=== PATIENT | male | born 2000 | race African-American/Black ===

== ENCOUNTER 2025-07-12 11:49 | Outpatient (AMB) | payer OTHER, SELFPAY ==
--- NOTE | 2025-07-12 12:02 | A.OFFVIS_ITS ---
Vital Signs 3 07/12/25 12:09 Height 5 ft 10 in Weight 190 lb BMI 27.3 Intake Visit Reasons: laceration/a fracture by the big toe DOI 05/30/25 Intake Note: job injurey xray and ct 05/30 done at [facility] x[facility] and was told there was no fractur in the foot nerve pain and function pins and needles HPI HPI laceration/a fracture by the big toe DOI 05/30/25: Details: The patient is a 25 year old male presenting for initial evaluation for a right foot injury. The patient sustained a traumatic injury and laceration to his right foot on May 30. 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 An initial evaluation suggested a sesamoid fracture, but a more recent X-ray on Thursday reportedly did not show a fracture. He states the wound was not sutured at the time of injury due to concerns about internal bleeding. He reports that the healing has been slow. The patient reports an inability to bend his big toe and has pain at the joint. He also describes experiencing nerve pain, specifically pins and needles and slight numbness in the knuckle and toe area. Medical History: - No significant health problems reported. - Denies history of diabetes mellitus. Social History: - Employment: The patient works as a concrete mixer truck driver and has been out of work due to his foot injury. Review of Systems Const All systems reviewed & are unremarkable except as noted in HPI and below Physical Exam Vital Signs: BMI result Body Mass Index 27.3 Extrem Other: *Bilateral Lower Extremity Focused Exam Vascular: DP/PT 2/4, CFT<3s to digits, TG wram to cool, moderate edema to right dorsal foot and plantar 1st MTP Derm: 4cm x 0.5cm x 0.2cm wound to dorsal lateral first metatarsal right foot with unstageable eschar. Neuro: Tinel's sign positive to right 1st interspace MSK: Moderate tenderness on palpation of plantar 1st MTP sesamoid right foot, (+) Pain on range of motion of right 1st MTP. Dorsiflexion 0/5 right hallux. Office Procedures AMB Debridement/Avulsion Podia Details: Procedure: Sharp excisional debridement Depth: Dermis layer Indication: Right foot wound status post laceration 05/30/2025 Anesthesia: 5% lidocaine jelly Description: The site was prepped using alcohol/cleanser. A #15 Blade and a curette weres used to perform a sharp excisional wound debridement of the lesion to the level of dermis. The lesion measured 4cm x 0.5cm x 0.3cm at the end of debridement. Dressings: triple antibiotic ointment, band-aid Tolerance: Patient tolerated procedure well, no immediate complications. [id number] of active wound <20cm Procedure code (CPT) selection complete Assessment & Plan Assessment & Plan (1) Closed fracture of sesamoid bone of right foot: Code(s): S92.811A - Other fracture of right foot, initial encounter for closed fracture Category: Medical Qualifiers: Encounter type: initial encounter Qualified Code(s): S92.811A - Other fracture of right foot, initial encounter for closed fracture Plan: * Differential diagnosis: Sesamoid fracture, 1st MTP turf toe, EHL/DPN laceration * Rx right foot x-rays * Rx MRI of the right foot to assess sesamoid fracture, tendon damage, and nerve injury, as the patient cannot flex his toe and reports paresthesia. * He was provided with a walking boot and instructed to wear it whenever he is walking to offload the foot. * The patient was provided a note for one month off work pending further diagnostic results. * The patient was counseled that a sesamoid fracture can take about two months to heal with immobilization, whereas a tendon/nerve injury would require surgical repair. * Follow up in 1 month (2) Laceration of extensor hallucis longus tendon: Code(s): S96.129A - Laceration of muscle and tendon of long extensor muscle of toe at ankle and foot level, unspecified foot, initial encounter Category: Medical Qualifiers: Encounter type: initial encounter Laterality: right Qualified Code(s): S96.121A - Laceration of muscle and tendon of long extensor muscle of toe at ankle and foot level, right foot, initial encounter Plan: * Rx MRI of the right foot to assess sesamoid fracture, tendon damage, and nerve injury, as the patient cannot flex his toe and reports paresthesia. (3) Wound of right foot: Code(s): S91.301A - Unspecified open wound, right foot, initial encounter Category: Medical Plan: * Debrided right foot wound. Dressed with antibiotic ointment and a band-aid. (4) Neuritis of right foot: Code(s): G57.91 - Unspecified mononeuropathy of right lower limb Category: Medical Plan: * Rx MRI of the right foot to assess sesamoid fracture, tendon damage, and nerve injury, as the patient cannot flex his toe and reports paresthesia. Orders: Orders 2 MR foot RT wo con Today S92.811A - Other fracture of right foot, initial encounter for closed fracture, S96.129A - Laceration of muscle and tendon of long extensor muscle of toe at ankle and foot level, unspecified foot, initial encounter XR foot RT min 3V Today S92.811A - Other fracture of right foot, initial encounter for closed fracture Coding Level of Care Code New Pt Level 4 (00392) Diagnoses Closed fracture of sesamoid bone of right foot, initial encounter S92.811A Encounter type: initial encounter Laceration of right extensor hallucis longus tendon, initial encounter S96.121A Encounter type: initial encounter Laterality: right Wound of right foot S91.301A Neuritis of right foot G57.91 CPT Codes Skin Debridement - CPT: 69953-Tiqciqmashb of active wound <20cm ([id number]) Time Spent (min) 35
[2025-07-12 12:09] VITALS: BMI 27.3
== END 2025-07-12 12:46 | disposition home or self-care (01) ==
LOC: HO.HPODS 11:49
PROVIDERS: Visit Provider Student in an Organized Health Care Education/Training Program
DX: S92.811A Other fracture of right foot, initial encounter for closed fracture (principal); S96.121A Laceration of muscle and tendon of long extensor muscle of toe at ankle and foot level, right foot, initial encounter; S91.301A Unspecified open wound, right foot, initial encounter; G57.91 Unspecified mononeuropathy of right lower limb
CPT/HCPCS: 97597; 99204

== ENCOUNTER → 2025-07-12 11:49 | Outpatient (BNVA) | payer OTHER, SELFPAY | PROVIDERS: Visit Provider Student in an Organized Health Care Education/Training Program | DX: S96.121A Laceration of muscle and tendon of long extensor muscle of toe at ankle and foot level, right foot, initial encounter (principal); S92.811A Other fracture of right foot, initial encounter for closed fracture; G57.91 Unspecified mononeuropathy of right lower limb; X58.XXXA Exposure to other specified factors, initial encounter; Y93.9 Activity, unspecified; Y92.9 Unspecified place or not applicable; Y99.0 Civilian activity done for income or pay | CPT/HCPCS: 97597; 99202 ==